=== PATIENT | male | born 1950 | race African-American/Black ===

== ENCOUNTER 2022-06-26 11:57 | Emergency (ER) | payer OTHER, SELFPAY ==
--- NOTE | ~2022-06-26 | XR_ITS ---
EXAMINATION: XR shoulder RT min 2V DATE: 06/26/2022 12:18 INDICATION: Right shoulder pain post fall TECHNIQUE: AP internally and externally rotated, AP oblique externally rotated and transscapular Y vi ews of the right shoulder were obtained. COMPARISON: None FINDINGS: Normal alignment. No fracture.Chondrocalcinosis along the right humeral head. Mild right hip, clavic ular and minimal glenohumeral osteoarthritis. Subtle calcific densities near the greater tuberosity l ikely related to calcific tendinitis. Bone island at the humeral head. Soft tissues are unremarkable. Visualized portion of the right upper lung are clear. IMPRESSION: 1. No acute osseous abnormality. 2. Moderate acromial clavicular and minimal right humeral osteoarthritis with chondrocalcinosis along the humeral head. 3. Likely right rotator cuff calcific tendinitis. Reviewed, dictated and finalized at location A. [facility] RELATIONS IMPRESSION: 1. No acute osseous abnormality. 2. Moderate acromial clavicular and minimal right humeral osteoarthritis with c hondrocalcinosis along the humeral head. 3. Likely right rotator cuff calcific tendinitis.
[2022-06-26 12:25] VITALS: BP 128/71; PULSE 99; RESP 18; TEMP 36.7; O2SAT 99
--- NOTE | 2022-06-26 13:44 | ED.GENADULT ---
HPI - General Adult General Chief complaint: Extremity Injury, Upper Stated complaint: shoulder pain for 1 week Time Seen by Provider: 06/26/22 13:10 History of Present Illness HPI narrative: Patient is a 72-year-old male presenting with right shoulder pain for several weeks. Patient states that several weeks ago he was being chased by dogs so he jumped on top of a car landing on his right shoulder. States that he has had a lot of pain in his right shoulder since then. States that he has been using Aleve with some relief. States that he had some old hydrocodone so he has taken that as well which has also helped. States that he assumed that the pain would eventually improve but it still has not so he came in for evaluation. No numbness or weakness. No further injuries or complaints. Related Data Allergies Allergy/AdvReac Type Severity Reaction Status Date / Time No Known Allergies Allergy Unverified 04/28/18 14:26 Review of Systems Review of Systems: All systems reviewed & are unremarkable except as noted in HPI and below Exam Narrative: GENERAL: Well-appearing, well-nourished, and in no acute distress. HEAD: Normocephalic, atraumatic. EYES: Right eye enucleation ENT: Nares clear, no rhinorrhea or epistaxis. Mucous membranes moist. NECK: Supple. CHEST: Clear to auscultation. No respiratory distress. HEART: Regular rate and rhythm. No murmur heard. Normal peripheral pulses. ABDOMEN: Soft, nontender, nondistended, normal active bowel sounds. EXTREMITIES: Range of motion of the right shoulder is limited secondary to pain but distal ROM is intact, neurovascularly intact, he is quite tender along the posterior aspect of the right shoulder extending to the lateral aspect of proximal humerus SKIN: Warm, dry, no rash. NEURO: No focal deficits. Alert and oriented x3. PSYCH: Normal mood and affect. Course Vital Signs Vital signs: Vital Signs Temperature 98.1 F 06/26/22 12:25 Pulse Rate 99 06/26/22 12:25 Respiratory Rate 18 06/26/22 12:25 Blood Pressure 128/71 06/26/22 12:25 Pulse Oximetry 99 06/26/22 12:25 Oxygen Delivery Room Air 06/26/22 12:25 Temperature 98.1 F 06/26/22 12:25 Pulse Rate 99 06/26/22 12:25 Respiratory Rate 18 06/26/22 12:25 Blood Pressure 128/71 06/26/22 12:25 Pulse Oximetry 99 06/26/22 12:25 Oxygen Delivery Room Air 06/26/22 12:25 Medical Decision Making MDM Narrative Medical decision making narrative: Patient is a 72-year-old male presenting with several weeks of right shoulder pain after falling. Vitals are within normal limits. Patient is nontoxic and in no acute distress. Exam is remarkable for the above. X-ray obtained shows no acute osseous abnormalities. He does have evidence of osteoarthritis and right rotator cuff calcific tendinitis. Advised that he continue to use NSAIDs for pain control. Advised that he follow-up with his primary care provider as well as orthopedic surgery. Appropriate return precautions were given. Patient discharged in stable condition. Vital Signs Vital Signs: Vital Signs Temperature 98.1 F 06/26/22 12:25 Pulse Rate 99 06/26/22 12:25 Respiratory Rate 18 06/26/22 12:25 Blood Pressure 128/71 06/26/22 12:25 Pulse Oximetry 99 06/26/22 12:25 Oxygen Delivery Room Air 06/26/22 12:25 Temperature 98.1 F 06/26/22 12:25 Pulse Rate 99 06/26/22 12:25 Respiratory Rate 18 06/26/22 12:25 Blood Pressure 128/71 06/26/22 12:25 Pulse Oximetry 99 06/26/22 12:25 Oxygen Delivery Room Air 06/26/22 12:25 Critical Care Time Critical Care Time Critical Care Time: No Discharge Plan Discharge Clinical Impression: Right shoulder pain, Calcific tendinitis Patient Disposition: Home, Self-Care Condition: Stable Instructions: Antibiotic Form, Calcific Tendinitis (ED), Shoulder Pain (ED) Additional Instructions: Please follow-up with your PCP as well as orthopedic surgery. Please u
[2022-06-26] MEDS: ACETAMINOPHEN 500 MG TABLET 1000 MG PO (13:53)
[2022-06-26] MEDS: IBUPROFEN 400 MG TABLET 800 MG PO (13:53)
== END 2022-06-26 14:15 | disposition home or self-care (01) ==
PROVIDERS: Emergency Provider Emergency Medicine; PCP Internal Medicine
DX: M75.31 Calcific tendinitis of right shoulder (principal); M25.511 Pain in right shoulder
CPT/HCPCS: 73030; 99283; A9270